=== PATIENT | male | born 1960 ===

== ENCOUNTER → 2016-12-24 | Day surgery (SDC) | payer OTHER ==
[2016-11-25 14:27] VITALS: Ht 177.8 cm; Wt 72.7 kg
[~2016-12-24] VITALS: Ht 177.8 cm; Wt 72.7 kg
== END | disposition home or self-care (01) ==
LOC: EDSTATUS 07:00 → C.PAT 15:53
PROVIDERS: ATTEND Orthopaedic Surgery Sports Medicine
DX: M13.841 Other specified arthritis, right hand (principal); Z53.9 Procedure and treatment not carried out, unspecified reason